=== PATIENT | female | born 1970 | race Caucasian/White ===

== ENCOUNTER 2016-11-11 11:57 | Emergency (ER) ==
[2016-11-11] MEDS ORDERED: ZOFRAN 4 MG/2 ML IM STA (12:01)
[2016-11-11] MEDS ORDERED: MORPHINE 4 MG/ML SYRINGE IM STA (12:01)
[2016-11-11 12:05] VITALS: BP 136/96; TEMP 97.2; BMI 25.4
--- NOTE | 2016-11-11 12:36 | DI ---
EXAM: Radiographs, left shoulder HISTORY: Left shoulder pain. COMPARISON: None available. TECHNIQUE: Three views. FINDINGS: Bone mineralization is normal. There is no fracture. Acromioclavicular joint space is w idened to approximately 1 cm. Contralateral side not available for comparison. No elevation of the clavicle with respect to the acromion noted. No focal soft tissue abnormality is seen. IMPRESSION: 1. No fracture. 2. Widening of the acromioclavicular joint which could be due to age indeterminate trauma.
--- NOTE | 2016-11-11 12:57 | ED.PDOC ---
General ED Provider: Dr. VALERIO BLANCO Chief Complaint: Shoulder Pain/Injury Stated Complaint: SHOULDER PAIN LEFT Time Seen by Physician: 12:00 (PULLED HER LEFT SHOULDER WITNESSED IT ) Mode of Arrival: Wheelchair Information Source: Patient Exam Limitations: No limitations Nursing and Triage Documentation Reviewed and Agree: Yes (NO CHEST PAIN) Musculoskeletal Complaint Exam - Shoulder Pain Complaint/Exam Mechanism of Injury: Reports: Trauma (BLUNT) Onset/Duration: 1 HR AGO Symptoms Are: Still present Timing: Constant Initial Severity: Moderate Current Severity: Moderate Character: Reports: Aching, Throbbing Alleviating: Reports: Rest Aggravating: Reports: Movement, Lifting, Flexion, Extension, Internal rotation, External rotation, Abduction Associated Signs and Symptoms: Reports: Swelling Related History: Reports: Similar episode Non-Orthopedic Risk Factors: Reports: None DVT Risk Factors: Reports: None Septic Arthritis Risk Factors: Reports: None Related Surgical History: Reports: None Tenderness: Present: Clavicle, AC joint, Proximal humerus, Rotator cuff muscles Limited Range of Motion: Present: Abduction, Adduction, Flexion, Extension, Internal rotation, External rotation, Rotator cuff muscles, Rotator cuff insertion Differential Diagnoses: AC Seperation, Arthritis, Foreign Body, Closed Fracture , Sprain, Strain Review of Systems - Review Of Systems Constitutional: Reports: No symptoms Eyes: Reports: No symptoms Ears, Nose, Mouth, Throat: Reports: No symptoms Respiratory: Reports: No symptoms Cardiac: Reports: No symptoms GI: Reports: No symptoms : Reports: No symptoms Musculoskeletal: Reports: Joint pain Skin: Reports: No symptoms Neurological: Reports: No symptoms Endocrine: Reports: No symptoms Hematologic/Lymphatic: Reports: No symptoms All Other Systems: Reviewed and Negative Past Medical History - Past Medical History Previously Healthy: Yes Endocrine: Reports: None Cardiovascular: Reports: None Respiratory: Reports: None Hematological: Reports: None Gastrointestinal: Reports: None Genitourinary: Reports: None Neuro/Psych: Reports: None Musculoskeletal: Reports: None Cancer: Reports: None Last Menstrual Period: none - Surgical History General Surgical History: Reports: None - Family History Family History: Reports: Unknown - Social History Smoking Status: Never smoker Hx Substance Use: No Alcohol Screening: None Physical Exam - Physical Exam Appearance: Well-appearing, No pain distress, Well-nourished Eyes: SENTHIL, EOMI, Conjunctiva clear ENT: Ears normal, Nose normal, Oropharynx normal Respiratory: Airway patent, Breath sounds clear, Breath sounds equal, Respirations nonlabored Cardiovascular: RRR, Pulses normal, No rub, No murmur GI/: Soft, Nontender, No masses, Bowel sounds normal, No Organomegaly Musculoskeletal: Limited ROM (LEFT SHOULDER ) Skin: Warm, Dry, Normal color Neurological: Sensation intact, Motor intact, Reflexes intact, Cranial nerves intact, Alert, Oriented Psychiatric: Affect appropriate, Mood appropriate Interpretation - Radiology Interpretation Radiology Interpretation By: Radiologist Radiology Results: No acute changes Critical Care Note - Critical Care Note Total Time (mins): 0 Course - Course Orders, Labs, Meds: Orders Category Date Time Status Morphine Sulfate [Morphine 4 mg/ml Syringe] MEDS 11/11/16 12:01 Discontinued 4 mg IM ONCE STA Ondansetron HCl/Pf [Zofran 4 mg/2 ml] MEDS 11/11/16 12:01 Discontinued 4 mg IM ONCE STA SHOULDER, LEFT MIN 2V Stat RADS 11/11/16 12:02 Completed Medications Discontinued Medications Generic Name Dose Route Start Last Admin Trade Name Freq PRN Reason Stop Dose Admin Morphine Sulfate 4 mg 11/11/16 12:01 11/11/16 12:13 Morphine 4 Mg/Ml Syringe IM 11/11/16 12:02 4 mg ONCE STA Administration Ondansetron HCl 4 mg 11/11/16 12:01 11/11/16 12:11 Zofran 4 Mg/2 Ml IM 11/11/16 12:02 4 mg ONCE STA Administration Vital Signs: Temp Pulse Resp BP Pulse Ox 11/11/16 11:59 97.2 F L 89 24 136/96 H 99 Departure - Departure Time of Disposition: 12:57 Disposition: HOME SELF-CARE Discharge Problem: Shoulder pain, Injury of shoulder region Rotator cuff (capsule) sprain Qualifiers: Encounter type: initial encounter Laterality: left Qualifier Code: (S43.422A) Sprain of left rotator cuff capsule, initial encounter Instructions: Rotator Cuff Injury (ED), Rotator Cuff Tendinitis (ED) Condition: Good Pt referred to PMD for follow-up: No Additional Instructions: Please call your Family Physician as soon as possible to schedule a follow-up appointment. Allergies/Adverse Reactions: Allergies codeine Adverse Reaction (Verified 11/11/16 12:05) Penicillins Adverse Reaction (Verified 11/11/16 12:05) prochlorperazine [From Compazine] Adverse Reaction (Verified 11/11/16 12:05) Sulfa (Sulfonamide Antibiotics) Adverse Reaction (Verified 11/11/16 12:05) sumatriptan [From Imitrex] Adverse Reaction (Verified 11/11/16 12:05) tramadol Adverse Reaction (Verified 11/11/16 12:05) Home Medications: Ambulatory Orders Venlafaxine HCl [Effexor] 75 mg PO BID 11/11/16
== END 2016-11-11 13:08 | disposition home or self-care (01) ==
LOC: ED 11:57
DX: S43.422A Sprain of left rotator cuff capsule, initial encounter (principal); W22.8XXA Striking against or struck by other objects, initial encounter
CPT/HCPCS: 96372; 99283